=== PATIENT | female | born 1965 | race Caucasian/White ===

== ENCOUNTER 2016-10-26 11:26 | Emergency (ER) | payer BC ==
[~2016-10-26] VITALS: Ht 154.9 cm; Wt 60.0 kg
[2016-10-26 11:27] VITALS: BP 145/96
[2016-10-26] MEDS ORDERED: MORP15TASA PO (11:40)
[2016-10-26] MEDS ORDERED: OXYC-424 PO (11:40)
[2016-10-26] MEDS ORDERED: SYNT50TA PO (11:40)
[2016-10-26] MEDS ORDERED: IBUP-1022 PO (12:15)
[2016-10-26] MEDS ORDERED: OXYC1TAB16 PO (12:15)
[2016-10-26] MEDS ORDERED: KETOROLAC 60 MG/2 ML VIAL (J1885) IM ONE (12:15)
== END 2016-10-26 12:41 | disposition home or self-care (01) ==
LOC: M ED 11:26
DX: S39.012A Strain of muscle, fascia and tendon of lower back, initial encounter (principal); M54.41 Lumbago with sciatica, right side; X50.9XXA Other and unspecified overexertion or strenuous movements or postures, initial encounter; Y92.9 Unspecified place or not applicable; Y93.89 Activity, other specified; Y99.8 Other external cause status; F17.200 Nicotine dependence, unspecified, uncomplicated; Z79.891 Long term (current) use of opiate analgesic; Z79.899 Other long term (current) drug therapy; Z88.8 Allergy status to other drugs, medicaments and biological substances
CPT/HCPCS: 96372; 99282; J1885

== ENCOUNTER 2018-12-01 13:40 | Emergency (ER) | payer BC ==
[~2018-12-01] VITALS: Ht 152.4 cm; Wt 60.0 kg
[~2018-12-01 13:40] MED LIST: IBUP-1022 PO; MORP15TASA PO; OXYC-424 PO; OXYC10TA3 PO; SYNT50TA PO
[2018-12-01 13:41] VITALS: BP 152/85
[2018-12-01] MEDS ORDERED: OXYC15TA76 (13:53)
[2018-12-01] MEDS ORDERED: MORP-69 (13:53)
== END 2018-12-01 15:52 | disposition home or self-care (01) ==
LOC: M ED 13:40
DX: Z76.0 Encounter for issue of repeat prescription (principal); M53.3 Sacrococcygeal disorders, not elsewhere classified; M51.9 Unspecified thoracic, thoracolumbar and lumbosacral intervertebral disc disorder; F17.210 Nicotine dependence, cigarettes, uncomplicated; Z88.5 Allergy status to narcotic agent; Z79.891 Long term (current) use of opiate analgesic

== ENCOUNTER 2023-12-09 07:20 | Emergency (ER) | payer BC ==
[~2023-12-09] VITALS: Ht 152.4 cm; Wt 65.7 kg
[~2023-12-09 07:20] MED LIST changes: +MORP-69; +OXYC-1
[2023-12-09 07:22] VITALS: BP 113/74; TEMP 97.4; O2SAT 98
[2023-12-09] MEDS ORDERED: ACET650T61 PO (07:38)
[2023-12-09] MEDS ORDERED: NAPR220C14 PO (07:39)
[2023-12-09] MEDS ORDERED: CYCL5TAB (09:29)
[2023-12-09] MEDS ORDERED: NAPR-837 PO (09:42)
== END 2023-12-09 10:02 | disposition home or self-care (01) ==
LOC: M ED 07:20
DX: R07.89 Other chest pain (principal); F17.210 Nicotine dependence, cigarettes, uncomplicated; Z88.8 Allergy status to other drugs, medicaments and biological substances; Z79.1 Long term (current) use of non-steroidal anti-inflammatories (NSAID); Z79.899 Other long term (current) drug therapy

== ENCOUNTER 2024-11-24 13:18 | Inpatient (IN) | payer BC ==
[~2024-11-24] VITALS: Ht 152.4 cm; Wt 68.5 kg
[~2024-11-24 13:18] MED LIST changes: +ACET650T61 PO; +CYCL5TAB4; -IBUP-1022 PO; +IBUP600T42 PO; +MORP-138 PO; -MORP15TASA PO; +NAPR-837 PO; +NAPR220C14 PO
[2024-11-24 14:14] LABS: KETONE, URINE AUTO RFX TRACE mg/dL (NEGATIVE); LEUKOCYTE ESTERASE UR AUTO RFX NEGATIVE (NEGATIVE); MUCUS, URINE RFX LARGE (NEGATIVE); NITRITE, URINE AUTO RFX NEGATIVE (NEGATIVE); RBC, URINE AUTO RFX 0 /HPF (0-3); SQUAM EPITHELIAL CELL UR AURFX 1 /HPF (0-6); WBC, URINE AUTO RFX 6 /HPF (0-3)
[2024-11-24] MEDS: NS (Normal Saline) 0.9% 1,000 ML IV ONE (14:14)
[2024-11-24] MEDS: KETOROLAC 30 MG/ML 1 ML VIAL IV ONE (14:16)
[2024-11-24 14:27] LABS: BASO # 0.1 10^3/uL (0.0-0.2); BASO % 0.2 % (0.0-1.0); EOS # 0.0 10^3/uL (0.0-0.5); EOS % 0.1 % (0.0-3.0); LYMPH # 1.1 10^3/uL (1.5-5.0); LYMPH % 5.5 % (24.0-44.0); MONO # 1.0 10^3/uL (0.0-0.8); MONO % 4.9 % (2.0-8.0); NEUTROPHILS # 17.7 10^3/uL (1.5-8.5); NEUTROPHILS % 88.7 % (36.0-66.0); PLATELET COUNT, AUTOMATED 350 10^3/uL (150-450)
[2024-11-24 14:59] LABS: ALT/SGPT 16 U/L (7.0-40); AST/SGOT 18 U/L (<34); CALCIUM LEVEL 8.7 MG/DL (8.3-10.6); CARBON DIOXIDE LEVEL 25 MMOL/L (20-31); CHLORIDE LEVEL 103 MMOL/L (98-107); CREATININE FOR GFR 0.55 MG/DL (0.55-1.30); GLOMERULAR FILTRATION RATE > 90.0 (>45); POTASSIUM SERUM 3.4 MMOL/L (3.5-5.1); SODIUM LEVEL 140 MMOL/L (136-145)
[2024-11-24] MEDS: cefTRIAXone SOD 1 GM in DEXTROSE 5% (D5W) ADV/MINI-BAG 50 ML IV ONE (15:39)
[2024-11-24] MEDS: DOXYCYCLINE HYCLATE 100 MG TABLET PO ONE (15:39)
[2024-11-24] MEDS ORDERED: ISOVUE-370 76% 100 ML VIAL As Ordered ONE (15:40)
[2024-11-24] MEDS ORDERED: HOME MED LIST COMPLETE! XX SCH (16:45)
[2024-11-24 17:14] LABS: INR 1.49
[2024-11-24 17:24] LABS: CK-MB VALUE MASS < 1.0 NG/ML (<3.6)
[2024-11-24 17:26] LABS: CPK CREATINE PHOSPHOKINASE 44 U/L (34-145)
[2024-11-24] MEDS: DOCUSATE SODIUM 100 MG CAPSULE PO SCH (21:00)
[2024-11-24] MEDS ORDERED: MOM 30 ML SUSPENSION UDC PO PRN (21:50)
[2024-11-24] MEDS: AZITHROMYCIN 250 MG TABLET PO SCH (22:18)
[2024-11-24] MEDS: ACETAMINOPHEN 325 MG TAB PO PRN (22:21)
[2024-11-24 22:28] LABS: MAGNESIUM LEVEL 1.9 MG/DL (1.8-2.4)
[2024-11-24] MEDS ORDERED: APIXABAN 5 MG TAB PO SCH (22:50)
[2024-11-24] MEDS ORDERED: IBUPROFEN 600 MG TAB PO PRN (22:55)
[2024-11-24 23:19] VITALS: BP 126/58; TEMP 98.4; O2SAT 92
[2024-11-24] MEDS: LIDOCAINE 5% PATCH TD SCH (23:26)
[2024-11-24] MEDS: APIXABAN 5 MG TAB PO SCH (23:26)
[2024-11-24] MEDS: PIPERACILLIN/TAZOBACTAM SOD 4.5 GM in DEXTROSE 5% (D5W) ADV/MINI-BAG 50 ML IV SCH (23:26)
[2024-11-24] MEDS: ONDANSETRON 4MG ORAL DISINTEGRATING TAB PO PRN (23:58)
[2024-11-24] MEDS: NICOTINE 14 MG/24 HR TRANSDERMAL TD PRN (23:58)
[2024-11-25] VITALS (30 sets, daily range): BP systolic 111–145; BP diastolic 53–74; TEMP 97–98.1; O2SAT 88–99
[2024-11-25] MEDS: POTASSIUM CHLORIDE 10MEQ SR TABLET PO ONE ×2 (00:49→08:57)
[2024-11-25] MEDS: IPRATROPIUM 0.5 MG/ALBUTEROL 2.5 MG INH SOL UD 3 ML INH SCH (01:43)
[2024-11-25] MEDS ORDERED: LEVALBUTEROL 1.25 MG 0.5ML CONCENTRATE NEB INH SCH (02:00)
[2024-11-25] MEDS: KETOROLAC 30 MG/ML 1 ML VIAL IV ONE (04:33)
[2024-11-25 06:16] LABS: PLATELET COUNT, AUTOMATED 283 10^3/uL (150-450)
[2024-11-25 06:28] LABS: ALT/SGPT 13 U/L (7.0-40); AST/SGOT 12 U/L (<34); CALCIUM LEVEL 8.1 MG/DL (8.3-10.6); CARBON DIOXIDE LEVEL 26 MMOL/L (20-31); CHLORIDE LEVEL 107 MMOL/L (98-107); CREATININE FOR GFR 0.60 MG/DL (0.55-1.30); GLOMERULAR FILTRATION RATE > 90.0 (>45); MAGNESIUM LEVEL 2.0 MG/DL (1.8-2.4); POTASSIUM SERUM 3.3 MMOL/L (3.5-5.1); SODIUM LEVEL 143 MMOL/L (136-145)
[2024-11-25] MEDS: LEVALBUTEROL 1.25 MG 0.5ML CONCENTRATE NEB INH PRN (07:53)
[2024-11-25] MEDS: DOXYCYCLINE HYCLATE 100 MG TABLET PO SCH (08:57)
[2024-11-25] MEDS: FLUZONE VACCINE TRIVALENT PF(25-26) 0.5ML SYRINGE IM.IMMUN ONE (12:00)
[2024-11-25] MEDS: PNEUMOC 21-VAL CONJ-DIP CRM/PF 0.5 ML SYRINGE IM.IMMUN ONE (12:00)
[2024-11-25] MEDS: ACETAMINOPHEN 325 MG TAB PO SCH (13:33)
[2024-11-25] MEDS: cefTRIAXone SOD 1 GM in DEXTROSE 5% (D5W) ADV/MINI-BAG 50 ML IV SCH (15:45)
[2024-11-26] VITALS (15 sets, daily range): BP systolic 115–136; BP diastolic 57–71; TEMP 97–98.4; O2SAT 86–96
[2024-11-26 05:44] LABS: PLATELET COUNT, AUTOMATED 298 10^3/uL (150-450)
[2024-11-26 06:07] LABS: ALT/SGPT 12 U/L (7.0-40); AST/SGOT 12 U/L (<34); CALCIUM LEVEL 8.4 MG/DL (8.3-10.6); CARBON DIOXIDE LEVEL 27 MMOL/L (20-31); CHLORIDE LEVEL 107 MMOL/L (98-107); CREATININE FOR GFR 0.57 MG/DL (0.55-1.30); GLOMERULAR FILTRATION RATE > 90.0 (>45); POTASSIUM SERUM 3.4 MMOL/L (3.5-5.1); SODIUM LEVEL 144 MMOL/L (136-145)
[2024-11-26] MEDS: POTASSIUM CHLORIDE 10MEQ SR TABLET PO SCH (09:05)
[2024-11-26] MEDS: MAALOX 30 ML SUSP *UDC PO PRN (17:30)
[2024-11-27] VITALS (21 sets, daily range): BP systolic 115–147; BP diastolic 63–87; TEMP 97.1–98.4; O2SAT 88–99
[2024-11-27 06:10] LABS: PLATELET COUNT, AUTOMATED 425 10^3/uL (150-450)
[2024-11-27 06:34] LABS: ALT/SGPT 14 U/L (7.0-40); AST/SGOT 14 U/L (<34); CALCIUM LEVEL 8.4 MG/DL (8.3-10.6); CARBON DIOXIDE LEVEL 28 MMOL/L (20-31); CHLORIDE LEVEL 106 MMOL/L (98-107); CREATININE FOR GFR 0.58 MG/DL (0.55-1.30); GLOMERULAR FILTRATION RATE > 90.0 (>45); POTASSIUM SERUM 3.8 MMOL/L (3.5-5.1); SODIUM LEVEL 142 MMOL/L (136-145)
[2024-11-27 09:21] LABS: DRVV SCREEN 137.8 SECONDS
[2024-11-27 09:58] LABS: PTT LUPUS TYPE ANTICOAG SCREEN 3.48 (0-1.20)
[2024-11-27 10:06] LABS: DRVV CONFIRM 148.4 SECONDS; LUPUS CONFIRM RATIO 3.88
[2024-11-27 10:07] LABS: NORMALIZED RATIO 0.89 (0.00-1.20)
[2024-11-27] MEDS ORDERED: DOXY100T PO (11:47)
[2024-11-27] MEDS ORDERED: CEFP200T PO (11:47)
[2024-11-27] MEDS ORDERED: OXYC-517 PO (11:47)
[2024-11-27] MEDS ORDERED: FLUC-1 PO (11:47)
[2024-11-27] MEDS ORDERED: ELIQ5TAB PO (11:47)
[2024-11-27] MEDS ORDERED: COMBAER6 INH (12:27)
[2024-11-27] MEDS: COMBIVENT RESPIMAT 100-20 MCG INHALER 4 GM INH SCH (13:37)
[2024-11-27] MEDS: CEFPODOXIME PROXETIL 200 MG TABLET PO SCH (13:45)
[2024-11-27] MEDS: ULTRACET TAB PO SCH (17:07)
[2024-11-28] VITALS (8 sets, daily range): BP systolic 121–138; BP diastolic 58–74; TEMP 97.9–98.6; O2SAT 85–94
[2024-11-28] MEDS ORDERED: IPRAINH INH (15:08)
[2024-11-28] MEDS ORDERED: VENTAER INH (15:08)
[2024-11-30 15:42] LABS: HOMOCYST(E)INE SERUM 8.7 umol/L (< or = 13.4)
[2024-11-30 17:07] LABS: PROTEIN S ANTIGEN FREE 128 % normal (50-147); PROTEIN S ANTIGEN TOTAL 117 % normal (70-140)
[2024-11-30 18:07] LABS: SSA SJOGRENS A <1.0 NEG AI (<1.0 NEG); SSB SJOGRENS B <1.0 NEG AI (<1.0 NEG)
[2024-12-01 00:42] LABS: CARDIOLIPIN IGA ANTIBODY < 2.0 APL-U/mL (<20.0); CARDIOLIPIN IGG ANTIBODY < 2.0 GPL-U/mL (<20.0); CARDIOLIPIN IGM ANTIBODY 4.6 MPL-U/mL (<20.0)
== END 2024-11-28 13:49 | disposition home or self-care (01) | DRG 720 ==
LOC: M ED 13:18 → M ED INP 21:47 → M PCU 23:05
PROVIDERS: ADMIT Student in an Organized Health Care Education/Training Program; ATTEND Internal Medicine Nephrology
PROC: B246ZZZ Ultrasonography of Right and Left Heart (ICD-10-PCS; principal; 2024-11-25)
DX: A41.9 Sepsis, unspecified organism (principal); I26.99 Other pulmonary embolism without acute cor pulmonale; J18.9 Pneumonia, unspecified organism; E89.0 Postprocedural hypothyroidism; G43.909 Migraine, unspecified, not intractable, without status migrainosus; F17.200 Nicotine dependence, unspecified, uncomplicated; M54.9 Dorsalgia, unspecified; E87.6 Hypokalemia; R09.02 Hypoxemia; Z90.49 Acquired absence of other specified parts of digestive tract; Z88.8 Allergy status to other drugs, medicaments and biological substances

== ENCOUNTER → 2024-12-04 | Outpatient (CLI) | payer BC ==
[~2024-12-04] MED LIST changes: +CEFP200T PO; +COMBAER6 INH; +DOXY100T PO; +ELIQ5TAB PO; +FLUC-1 PO; +IPRAINH INH; +OXYC-517 PO; +VENTAER INH
== END ==
LOC: M RAD 11:17 → M LAB 11:17
PROVIDERS: ATTEND Nurse Practitioner Family
DX: J18.9 Pneumonia, unspecified organism (principal)

== ENCOUNTER → 2025-01-04 | Outpatient (CLI) | payer BC | LOC: M WUC 14:38 | PROVIDERS: ATTEND Student in an Organized Health Care Education/Training Program | DX: J44.1 Chronic obstructive pulmonary disease with (acute) exacerbation (principal) ==

== ENCOUNTER → 2025-01-11 | Outpatient (REF) | payer BC ==
[~2025-01-11] MED LIST changes: +LOVE0.4I2 SC; +MED REC COMMENT; +WARF-23 PO
[2025-01-11 18:24] LABS: CALCIUM LEVEL 8.8 MG/DL (8.3-10.6); CARBON DIOXIDE LEVEL 27 MMOL/L (20-31); CHLORIDE LEVEL 107 MMOL/L (98-107); CREATININE FOR GFR 0.60 MG/DL (0.55-1.30); GLOMERULAR FILTRATION RATE > 90.0 (>45); POTASSIUM SERUM 3.7 MMOL/L (3.5-5.1); SODIUM LEVEL 142 MMOL/L (136-145)
== END ==
LOC: M LAB REF 17:30
PROVIDERS: ATTEND Student in an Organized Health Care Education/Training Program
DX: R07.89 Other chest pain (principal)

== ENCOUNTER 2025-01-12 20:57 | Inpatient (IN) | payer BC ==
[~2025-01-12] VITALS: Ht 152.4 cm; Wt 65.3 kg
[~2025-01-12 20:57] MED LIST changes: -ISOVUE-370 76% 100 ML VIAL ONE; -KETO-204 PO; -LOVE0.4I2 SC; -MED REC COMMENT; -WARF-23 PO
[2025-01-12 21:24] LABS: BASO # 0.0 10^3/uL (0.0-0.2); BASO % 0.2 % (0.0-1.0); EOS # 0.1 10^3/uL (0.0-0.5); EOS % 1.0 % (0.0-3.0); LYMPH # 2.2 10^3/uL (1.5-5.0); LYMPH % 15.7 % (24.0-44.0); MONO # 0.8 10^3/uL (0.0-0.8); MONO % 5.9 % (2.0-8.0); NEUTROPHILS # 10.8 10^3/uL (1.5-8.5); NEUTROPHILS % 76.8 % (36.0-66.0); PLATELET COUNT, AUTOMATED 482 10^3/uL (150-450)
[2025-01-12 21:44] LABS: INR 1.09
[2025-01-12 21:52] LABS: ALT/SGPT 14 U/L (7.0-40); AST/SGOT 32 U/L (<34); CALCIUM LEVEL 8.4 MG/DL (8.3-10.6); CARBON DIOXIDE LEVEL 25 MMOL/L (20-31); CHLORIDE LEVEL 103 MMOL/L (98-107); CK-MB VALUE MASS < 1.0 NG/ML (<3.6); CREATININE FOR GFR 0.56 MG/DL (0.55-1.30); GLOMERULAR FILTRATION RATE > 90.0 (>45); POTASSIUM SERUM 4.0 MMOL/L (3.5-5.1); SODIUM LEVEL 137 MMOL/L (136-145)
[2025-01-12 22:05] LABS: CPK CREATINE PHOSPHOKINASE 57 U/L (34-145)
[2025-01-12] MEDS: ONDANSETRON 4MG/2ML VIAL IV ONE (22:15)
[2025-01-12] MEDS: MORPHINE 4 MG/ML 1 ML VIAL IV PRN (22:16)
[2025-01-12 22:51] LABS: INR 1.11
[2025-01-12] MEDS: PIPERACILLIN/TAZOBACTAM SOD 4.5 GM in DEXTROSE 5% (D5W) ADV/MINI-BAG 50 ML IV ONE (23:17)
[2025-01-12] MEDS ORDERED: VENTAER INH (23:44)
[2025-01-12] MEDS ORDERED: WARF-23 PO (23:44)
[2025-01-12] MEDS ORDERED: LOVE0.4I2 SC (23:44)
[2025-01-12] MEDS ORDERED: MED REC COMMENT (23:47)
[2025-01-12] MEDS ORDERED: HOME MED LIST COMPLETE! XX SCH (23:50)
[2025-01-13] MEDS ORDERED: ALBUTEROL 90 MCG/ACT 8 GM HFA INHALER INH PRN (00:05)
[2025-01-13] MEDS: ENOXAPARIN 60 MG/0.6 ML SYRINGE (J1650 PER 10MG) SC SCH (00:57)
[2025-01-13] MEDS: PIPERACILLIN/TAZOBACTAM SOD 4.5 GM in DEXTROSE 5% (D5W) ADV/MINI-BAG 50 ML IV SCH (05:07)
[2025-01-13] MEDS: ACETAMINOPHEN 650 MG ER TAB PO PRN (06:13)
[2025-01-13 07:27] LABS: INR 1.2
[2025-01-13 13:55] VITALS: BP 144/85; TEMP 97.3; O2SAT 97
[2025-01-13 16:00] VITALS: BP 101/57; TEMP 97.9; O2SAT 90
[2025-01-13] MEDS: ALBUTEROL 90 MCG/ACT 8 GM HFA INHALER INH SCH (16:24)
[2025-01-13] MEDS: IPRATROPIUM HFA INHALER 12.9 GRAMS INH SCH (16:25)
[2025-01-13] MEDS: traMADol 50 MG TAB PO SCH (16:35)
[2025-01-13] MEDS: WARFARIN SOD 5MG TAB PO SCH (16:35)
[2025-01-13] MEDS: ACETAMINOPHEN 500 MG TAB PO SCH (16:35)
[2025-01-13] MEDS: KETOROLAC 30 MG/ML 1 ML VIAL IV ONE (17:44)
[2025-01-13 21:35] VITALS: BP 102/58; TEMP 97; O2SAT 92
[2025-01-14 00:11] VITALS: BP 102/56; TEMP 96.8; O2SAT 90
[2025-01-14 04:15] VITALS: BP 133/74; TEMP 97.3; O2SAT 92
[2025-01-14 06:37] LABS: BASO # 0.0 10^3/uL (0.0-0.2); BASO % 0.4 % (0.0-1.0); EOS # 0.1 10^3/uL (0.0-0.5); EOS % 1.6 % (0.0-3.0); LYMPH # 1.5 10^3/uL (1.5-5.0); LYMPH % 18.5 % (24.0-44.0); MONO # 0.6 10^3/uL (0.0-0.8); MONO % 7.6 % (2.0-8.0); NEUTROPHILS # 5.7 10^3/uL (1.5-8.5); NEUTROPHILS % 71.4 % (36.0-66.0); PLATELET COUNT, AUTOMATED 468 10^3/uL (150-450)
[2025-01-14 07:08] LABS: CALCIUM LEVEL 8.5 MG/DL (8.3-10.6); CARBON DIOXIDE LEVEL 27 MMOL/L (20-31); CHLORIDE LEVEL 104 MMOL/L (98-107); CREATININE FOR GFR 0.63 MG/DL (0.55-1.30); GLOMERULAR FILTRATION RATE > 90.0 (>45); POTASSIUM SERUM 3.6 MMOL/L (3.5-5.1); SODIUM LEVEL 140 MMOL/L (136-145)
[2025-01-14 08:45] VITALS: BP 125/78; TEMP 97.3; O2SAT 93
[2025-01-14] MEDS ORDERED: KETO-204 PO (13:50)
== END 2025-01-14 14:25 | disposition home or self-care (01) | DRG 139 ==
LOC: M ED 20:57 → M ED INP 01-13 00:02 → M MSPAV 01-13 14:04
PROVIDERS: ADMIT Student in an Organized Health Care Education/Training Program; ATTEND Internal Medicine Nephrology
DX: J18.9 Pneumonia, unspecified organism (principal); I26.99 Other pulmonary embolism without acute cor pulmonale; D68.59 Other primary thrombophilia; E03.9 Hypothyroidism, unspecified; F17.210 Nicotine dependence, cigarettes, uncomplicated; G43.909 Migraine, unspecified, not intractable, without status migrainosus; Z79.01 Long term (current) use of anticoagulants; Z79.899 Other long term (current) drug therapy; Z88.8 Allergy status to other drugs, medicaments and biological substances

== ENCOUNTER → 2025-01-12 | Outpatient (CLI) | payer BC ==
[~2025-01-12] MED LIST changes: +ISOVUE-370 76% 100 ML VIAL ONE; +KETO-204 PO
== END ==
LOC: M PLAIMG 07:57
PROVIDERS: ATTEND Student in an Organized Health Care Education/Training Program
DX: R07.89 Other chest pain (principal); I26.99 Other pulmonary embolism without acute cor pulmonale; R91.8 Other nonspecific abnormal finding of lung field; K44.9 Diaphragmatic hernia without obstruction or gangrene
CPT/HCPCS: 71275; Q9967

== ENCOUNTER → 2025-01-15 | Outpatient (CLI) | payer BC ==
[~2025-01-15] MED LIST changes: +FAMO20TA PO; +KETO-204 PO; +LOVE0.4I2 SC; +MED REC COMMENT; +WARF-23 PO
[2025-01-15 12:20] LABS: INR 1.17
== END ==
LOC: M WUC 09:21
PROVIDERS: ATTEND Physical Therapist
DX: I26.94 Multiple subsegmental thrombotic pulmonary emboli without acute cor pulmonale (principal)

== ENCOUNTER 2025-01-17 18:57 | Inpatient (IN) | payer BC ==
[~2025-01-17] VITALS: Ht 152.4 cm; Wt 64.7 kg
[~2025-01-17 18:57] MED LIST changes: -FAMO20TA PO
[2025-01-17 19:43] LABS: BASO # 0.1 10^3/uL (0.0-0.2); BASO % 0.4 % (0.0-1.0); EOS # 0.1 10^3/uL (0.0-0.5); EOS % 0.6 % (0.0-3.0); LYMPH # 2.0 10^3/uL (1.5-5.0); LYMPH % 15.5 % (24.0-44.0); MONO # 0.6 10^3/uL (0.0-0.8); MONO % 4.8 % (2.0-8.0); NEUTROPHILS # 10.0 10^3/uL (1.5-8.5); NEUTROPHILS % 78.2 % (36.0-66.0); PLATELET COUNT, AUTOMATED 542 10^3/uL (150-450)
[2025-01-17] MEDS ORDERED: ISOVUE-370 76% 100 ML VIAL As Ordered ONE (19:46)
[2025-01-17] MEDS: MORPHINE 4 MG/ML 1 ML VIAL IV PRN (19:51)
[2025-01-17] MEDS: ONDANSETRON 4MG/2ML VIAL IV ONE (19:51)
[2025-01-17 20:05] LABS: INR 1.52
[2025-01-17 20:07] LABS: CK-MB VALUE MASS < 1.0 NG/ML (<3.6)
[2025-01-17 20:08] LABS: ALT/SGPT 80 U/L (7.0-40); AST/SGOT 37 U/L (<34); CALCIUM LEVEL 8.6 MG/DL (8.3-10.6); CARBON DIOXIDE LEVEL 24 MMOL/L (20-31); CHLORIDE LEVEL 106 MMOL/L (98-107); CREATININE FOR GFR 1.11 MG/DL (0.55-1.30); GLOMERULAR FILTRATION RATE 56.9 (>45); POTASSIUM SERUM 3.7 MMOL/L (3.5-5.1); SODIUM LEVEL 141 MMOL/L (136-145)
[2025-01-17 20:11] LABS: CPK CREATINE PHOSPHOKINASE 49 U/L (34-145)
[2025-01-17 20:13] LABS: VENOUS BASE EXCESS -0.5 (-2.0-2.0); VENOUS HCO3 24.1 MMOL/L (23.0-27.0); VENOUS O2 SATURATION 92.3 % (60.0-80.0); VENOUS PARTIAL PRESSURE CO2 39.5 mmHg (38.0-50.0); VENOUS PARTIAL PRESSURE O2 67.5 mmHg (30.0-50.0); VENOUS PH 7.404 UNITS (7.330-7.430); VENOUS STANDARD HCO3 24.0 MMOL/L; VENOUS TOTAL CO2 25.4 MMOL/L (24.0-28.0)
[2025-01-18] VITALS (21 sets, daily range): BP systolic 120–159; BP diastolic 65–86; TEMP 97.5–98.6; O2SAT 85–100
[2025-01-18] MEDS: MORPHINE 4 MG/ML 1 ML VIAL IV PRN ×2 (00:26→19:40)
[2025-01-18] MEDS ORDERED: MAALOX 30 ML SUSP *UDC PO PRN (01:15)
[2025-01-18] MEDS ORDERED: MOM 30 ML SUSPENSION UDC PO PRN (01:15)
[2025-01-18] MEDS: ENOXAPARIN 60 MG/0.6 ML SYRINGE (J1650 PER 10MG) SC ONE (01:37)
[2025-01-18] MEDS: PIPERACILLIN/TAZOBACTAM SOD 4.5 GM in DEXTROSE 5% (D5W) ADV/MINI-BAG 50 ML IV SCH (01:57)
[2025-01-18] MEDS ORDERED: FAMO20TA PO (02:04)
[2025-01-18] MEDS ORDERED: HOME MED LIST COMPLETE! XX SCH (02:10)
[2025-01-18] MEDS: IPRATROPIUM 0.5 MG/ALBUTEROL 2.5 MG INH SOL UD 3 ML INH SCH (02:11)
[2025-01-18] MEDS: ACETAMINOPHEN *IV* 1,000 MG in IV 1 EA IV PRN (02:54)
[2025-01-18] MEDS ORDERED: ALBUTEROL 90 MCG/ACT 8 GM HFA INHALER INH PRN (05:30)
[2025-01-18] MEDS ORDERED: FAMOTIDINE 20 MG TAB PO PRN (05:30)
[2025-01-18] MEDS: KETOROLAC TROMETHAMINE 10 MG TAB PO PRN (06:11)
[2025-01-18 06:33] LABS: PLATELET COUNT, AUTOMATED 524 10^3/uL (150-450)
[2025-01-18 07:06] LABS: CALCIUM LEVEL 8.4 MG/DL (8.3-10.6); CARBON DIOXIDE LEVEL 26 MMOL/L (20-31); CHLORIDE LEVEL 102 MMOL/L (98-107); CREATININE FOR GFR 0.63 MG/DL (0.55-1.30); GLOMERULAR FILTRATION RATE > 90.0 (>45); POTASSIUM SERUM 3.7 MMOL/L (3.5-5.1); SODIUM LEVEL 138 MMOL/L (136-145)
[2025-01-18] MEDS: LR 1,000 ML IV SCH (07:06)
[2025-01-18] MEDS: DOCUSATE SODIUM 100 MG CAPSULE PO SCH (09:13)
[2025-01-18] MEDS: ACETAMINOPHEN 325 MG TAB PO PRN (09:16)
[2025-01-18 12:10] LABS: INR 1.9
[2025-01-18] MEDS ORDERED: PILL CUTTER 1 EACH XX PRN (15:05)
[2025-01-18] MEDS: FLUZONE VACCINE TRI PF(25-26) 0.5ML SYRINGE IM.IMMUN ONE (15:06)
[2025-01-18] MEDS: PNEUMOC 21-VAL CONJ-DIP CRM/PF 0.5 ML SYRINGE IM.IMMUN ONE (15:08)
[2025-01-18] MEDS: WARFARIN SOD 5MG TAB PO SCH (16:43)
[2025-01-18] MEDS: KETOROLAC 30 MG/ML 1 ML VIAL IV PRN (21:13)
[2025-01-19 00:45] LABS: FREE T4 1.12 NG/DL (0.89-1.76)
[2025-01-19 04:00] VITALS: BP 139/63; TEMP 98.6; O2SAT 90
[2025-01-19 06:24] LABS: PLATELET COUNT, AUTOMATED 425 10^3/uL (150-450)
[2025-01-19 06:45] LABS: INR 2.19
[2025-01-19 06:49] LABS: CALCIUM LEVEL 8.1 MG/DL (8.3-10.6); CARBON DIOXIDE LEVEL 26 MMOL/L (20-31); CHLORIDE LEVEL 103 MMOL/L (98-107); CREATININE FOR GFR 0.56 MG/DL (0.55-1.30); GLOMERULAR FILTRATION RATE > 90.0 (>45); POTASSIUM SERUM 3.8 MMOL/L (3.5-5.1); SODIUM LEVEL 138 MMOL/L (136-145)
[2025-01-19 07:00] VITALS: O2SAT 88
[2025-01-19 08:00] VITALS: O2SAT 89
[2025-01-19 09:00] VITALS: O2SAT 86
[2025-01-19 10:00] VITALS: O2SAT 92
[2025-01-19] MEDS ORDERED: AMOX875T2 PO (10:09)
[2025-01-19] MEDS ORDERED: OXYC10TA12 PO (10:09)
== END 2025-01-19 12:00 | disposition home or self-care (01) | DRG 134 ==
LOC: M ED 18:57 → M ED INP 18:58 → M MS4PR 01-18 03:30 → M ED INP 01-18 03:30 → M MS4PR 01-18 05:30 → OBSVTOIN 01-18 16:20
PROVIDERS: ADMIT Student in an Organized Health Care Education/Training Program; ATTEND Internal Medicine
DX: I27.82 Chronic pulmonary embolism (principal); J18.9 Pneumonia, unspecified organism; N17.9 Acute kidney failure, unspecified; E03.9 Hypothyroidism, unspecified; R07.81 Pleurodynia; G43.909 Migraine, unspecified, not intractable, without status migrainosus; Z87.442 Personal history of urinary calculi; Z90.49 Acquired absence of other specified parts of digestive tract; Z79.01 Long term (current) use of anticoagulants; Z79.899 Other long term (current) drug therapy; Z88.8 Allergy status to other drugs, medicaments and biological substances

== ENCOUNTER → 2025-01-20 | Outpatient (CLI) | payer BC ==
[~2025-01-20] MED LIST changes: +AMOX875T2 PO; +FAMO20TA PO; +OXYC10TA12 PO
== END ==
LOC: M RAD 12:18
PROVIDERS: ATTEND Nurse Practitioner Family
DX: M79.89 Other specified soft tissue disorders (principal)

== ENCOUNTER 2025-02-03 05:28 | Inpatient (IN) | payer BC ==
[~2025-02-03] VITALS: Ht 152.4 cm; Wt 63.2 kg
[2025-02-03] VITALS (19 sets, daily range): BP systolic 90–118; BP diastolic 61–81; TEMP 97.4–98.5; O2SAT 90–99
[~2025-02-03 05:28] MED LIST changes: +ATRO0.063 INH; +ENOX60IN3 SC
[2025-02-03] MEDS ORDERED: ISOVUE-370 76% 100 ML VIAL As Ordered ONE (05:51)
[2025-02-03 06:00] LABS: VENOUS BASE EXCESS -7.2 (-2.0-2.0); VENOUS HCO3 18.0 MMOL/L (23.0-27.0); VENOUS O2 SATURATION 64.6 % (60.0-80.0); VENOUS PARTIAL PRESSURE CO2 35.3 mmHg (38.0-50.0); VENOUS PARTIAL PRESSURE O2 38.3 mmHg (30.0-50.0); VENOUS PH 7.326 UNITS (7.330-7.430); VENOUS STANDARD HCO3 18.0 MMOL/L; VENOUS TOTAL CO2 19.1 MMOL/L (24.0-28.0)
[2025-02-03 06:06] LABS: BASO # 0.1 10^3/uL (0.0-0.2); BASO % 0.4 % (0.0-1.0); EOS # 0.1 10^3/uL (0.0-0.5); EOS % 0.2 % (0.0-3.0); LYMPH # 3.3 10^3/uL (1.5-5.0); LYMPH % 15.4 % (24.0-44.0); MONO # 1.1 10^3/uL (0.0-0.8); MONO % 5.2 % (2.0-8.0); NEUTROPHILS # 16.8 10^3/uL (1.5-8.5); NEUTROPHILS % 77.8 % (36.0-66.0); PLATELET COUNT, AUTOMATED 414 10^3/uL (150-450)
[2025-02-03 06:27] LABS: CK-MB VALUE MASS 2.0 NG/ML (<3.6)
[2025-02-03 06:29] LABS: ALT/SGPT 15 U/L (7.0-40); AST/SGOT 26 U/L (<34); CALCIUM LEVEL 7.9 MG/DL (8.3-10.6); CARBON DIOXIDE LEVEL 17 MMOL/L (20-31); CHLORIDE LEVEL 106 MMOL/L (98-107); CREATININE FOR GFR 0.64 MG/DL (0.55-1.30); GLOMERULAR FILTRATION RATE > 90.0 (>45); MAGNESIUM LEVEL 1.9 MG/DL (1.8-2.4); POTASSIUM SERUM 3.7 MMOL/L (3.5-5.1); SODIUM LEVEL 140 MMOL/L (136-145)
[2025-02-03 06:31] LABS: THYROXINE (T4) 10.5 UG/DL (4.5-10.9)
[2025-02-03 06:34] LABS: CPK CREATINE PHOSPHOKINASE 42 U/L (34-145); MB/CK RELATIVE INDEX 4.76 (< OR =4)
[2025-02-03 06:46] LABS: D-DIMER QUANT > 20.00 ug/mL (<0.5); INR 1.42
[2025-02-03] MEDS: NS 500 ML IV ONE (07:21)
[2025-02-03] MEDS: CEFEPIME HCL 1 GM in DEXTROSE 5% (D5W) ADV/MINI-BAG 50 ML IV ONE (07:21)
[2025-02-03 07:30] LABS: CK-MB VALUE MASS 7.7 NG/ML (<3.6)
[2025-02-03 07:32] LABS: CPK CREATINE PHOSPHOKINASE 60.0 U/L (34-145); MB/CK RELATIVE INDEX 12.83 (< OR =4)
[2025-02-03] MEDS ORDERED: ENOX60IN3 SC (09:24)
[2025-02-03] MEDS ORDERED: OXYC10TA12 PO (09:24)
[2025-02-03] MEDS ORDERED: HOME MED LIST COMPLETE! XX SCH (09:25)
[2025-02-03] MEDS ORDERED: MIDAZOLAM INJ 2 MG/2 ML VIAL IV PRN (12:10)
[2025-02-03] MEDS: LIDOCAINE 1% MDV 20 ML VIAL SC SCH (12:52)
[2025-02-03] MEDS: ISOVUE-300 61% 100 ML VIAL IV SCH (12:52)
[2025-02-03] MEDS: NS (Normal Saline) 0.9% 1,000 ML IV SCH (12:52)
[2025-02-03] MEDS ORDERED: NS (Normal Saline) 0.9% 1,000 ML IV SCH (12:55)
[2025-02-03] MEDS: IPRATROPIUM 0.5 MG/ALBUTEROL 2.5 MG INH SOL UD 3 ML NEB SCH (14:16)
[2025-02-03] MEDS: ACETAMINOPHEN *IV* 1,000 MG in IV 1 EA IV SCH (14:44)
[2025-02-03] MEDS ORDERED: HEPARIN SOD 5000 UNITS/ML 1 ML VIAL/SYRINGE IV PRN (15:45)
[2025-02-03] MEDS: HEPARIN SOD 5000 UNITS/ML 1 ML VIAL/SYRINGE IV ONE (17:56)
[2025-02-03] MEDS: HEPARIN DRIP 25,000 UNITS in IV 1 EA IV SCH (18:04)
[2025-02-03] MEDS: KETOROLAC 30 MG/ML 1 ML VIAL IV ONE (20:14)
[2025-02-03] MEDS: SENNA 8.6 MG TAB PO SCH (20:15)
[2025-02-03] MEDS: DOCUSATE SODIUM 100 MG CAPSULE PO SCH (20:15)
[2025-02-04] VITALS (30 sets, daily range): BP systolic 79–116; BP diastolic 50–74; TEMP 97–98.7; O2SAT 89–100
[2025-02-04 05:05] LABS: BASO # 0.1 10^3/uL (0.0-0.2); BASO % 0.2 % (0.0-1.0); EOS # 0.0 10^3/uL (0.0-0.5); EOS % 0.0 % (0.0-3.0); LYMPH # 1.7 10^3/uL (1.5-5.0); LYMPH % 5.3 % (24.0-44.0); MONO # 1.7 10^3/uL (0.0-0.8); MONO % 5.1 % (2.0-8.0); NEUTROPHILS # 29.0 10^3/uL (1.5-8.5); NEUTROPHILS % 88.3 % (36.0-66.0)
[2025-02-04 05:06] LABS: PLATELET COUNT, AUTOMATED 294 10^3/uL (150-450)
[2025-02-04 05:37] LABS: ALT/SGPT 14 U/L (7.0-40); AST/SGOT 31 U/L (<34); CALCIUM LEVEL 8.2 MG/DL (8.3-10.6); CARBON DIOXIDE LEVEL 21 MMOL/L (20-31); CHLORIDE LEVEL 108 MMOL/L (98-107); CREATININE FOR GFR 0.65 MG/DL (0.55-1.30); GLOMERULAR FILTRATION RATE > 90.0 (>45); POTASSIUM SERUM 3.4 MMOL/L (3.5-5.1); SODIUM LEVEL 143 MMOL/L (136-145)
[2025-02-04] MEDS: PANTOPRAZOLE 40MG VIAL IV SCH (08:09)
[2025-02-04] MEDS: KETOROLAC 30 MG/ML 1 ML VIAL IV SCH (08:10)
[2025-02-04 08:19] LABS: C REACTIVE PROTEIN QUANTITATIV 9.58 MG/DL (<1.0)
[2025-02-04] MEDS ORDERED: AZITHROMYCIN 250 MG TABLET PO SCH (09:00)
[2025-02-04] MEDS: PIPERACILLIN/TAZOBACTAM SOD 4.5 GM in DEXTROSE 5% (D5W) ADV/MINI-BAG 50 ML IV SCH (09:42)
[2025-02-04] MEDS ORDERED: POTASSIUM CHLORIDE 10% LIQ 20MEQ/15ML UDC PO ONE (10:00)
[2025-02-04] MEDS: KCL 10MEQ/100ML SWI (KRUN) 10 MEQ in IV 1 EA IV SCH (11:00)
[2025-02-04] MEDS: AZITHROMYCIN INJ 500 MG, VIAL MATE ADAPTER 1 EACH in NS 250 ML IV ONE (11:00)
[2025-02-04] MEDS: ISOVUE-300 61% 100 ML VIAL IV SCH (11:05)
[2025-02-04] MEDS ORDERED: HEPARIN 1,000 UNITS/ML 10 ML VIAL (FOR RADIOLOGY & DIALYSIS ONLY) IV PRN (11:05)
[2025-02-04] MEDS: NS (Normal Saline) 0.9% 1,000 ML IV SCH (11:05)
[2025-02-04] MEDS: LIDOCAINE 1% MDV 20 ML VIAL SC SCH (12:43)
[2025-02-04] MEDS: MIDAZOLAM INJ 2 MG/2 ML VIAL IV PRN (12:44)
[2025-02-04] MEDS: MAG SULF 1GM/100ML (MAG RUN) 1 GM in IV 1 EA IV SCH (13:32)
[2025-02-04] MEDS: VANCOMYCIN HCL 1,250 MG, VIAL MATE ADAPTER 1 EACH in NS 250 ML IV ONE (13:42)
[2025-02-04] MEDS ORDERED: MAGNESIUM SULFATE 1 GM/100 ML D5W BAG (10MG/ML) As Ordered ONE (14:36)
[2025-02-04] MEDS: AZITHROMYCIN 250 MG TABLET PO SCH (15:28)
[2025-02-04] MEDS: POTASSIUM CHLORIDE 10% LIQ 20MEQ/15ML UDC PO ONE (15:38)
[2025-02-04] MEDS ORDERED: IPRATROPIUM 0.5 MG/ALBUTEROL 2.5 MG INH SOL UD 3 ML NEB PRN (17:40)
[2025-02-04] MEDS: LEVALBUTEROL 1.25 MG 0.5ML CONCENTRATE NEB NEB ONE (18:03)
[2025-02-04] MEDS: GLYCOPYRROLATE INJ 0.2 MG/ML 2 ML VIAL NEB SCH (19:53)
[2025-02-04] MEDS: LEVALBUTEROL 1.25 MG 0.5ML CONCENTRATE NEB INH SCH (19:53)
[2025-02-04] MEDS ORDERED: VANCOMYCIN HCL 1,250 MG, VIAL MATE ADAPTER 1 EACH in NS 250 ML IV SCH (20:00)
[2025-02-04] MEDS: VANCOMYCIN HCL 1,250 MG, VIAL MATE ADAPTER 1 EACH in NS 250 ML IV SCH (21:23)
[2025-02-05] VITALS (10 sets, daily range): BP systolic 89–100; BP diastolic 51–70; TEMP 96.5–98; O2SAT 90–97
[2025-02-05] MEDS: PANTOPRAZOLE 40MG VIAL IV SCH (02:11)
[2025-02-05 02:28] LABS: BASO # 0.0 10^3/uL (0.0-0.2); BASO % 0.2 % (0.0-1.0); EOS # 0.0 10^3/uL (0.0-0.5); EOS % 0.0 % (0.0-3.0); LYMPH # 1.7 10^3/uL (1.5-5.0); LYMPH % 8.0 % (24.0-44.0); MONO # 0.8 10^3/uL (0.0-0.8); MONO % 3.9 % (2.0-8.0); NEUTROPHILS # 18.4 10^3/uL (1.5-8.5); NEUTROPHILS % 87.0 % (36.0-66.0); PLATELET COUNT, AUTOMATED 233 10^3/uL (150-450)
[2025-02-05] MEDS: HYDROMORPHONE HCL 0.5 MG/0.5 ML SYRINGE IV ONE (02:48)
[2025-02-05] MEDS: NS 500 ML IV ONE (03:49)
[2025-02-05] MEDS ORDERED: NOREPINEPHRINE 4MG IN D5 250ML 4 MG in IV 1 EA IV SCH (04:50)
[2025-02-05] MEDS ORDERED: FUROSEMIDE 40 MG/4 ML VIAL As Ordered ONE (06:20)
[2025-02-05] MEDS ORDERED: FLUMAZENIL 0.5 MG/5 ML VIAL As Ordered ONE (06:24)
[2025-02-05] MEDS ORDERED: VASOPRESSIN IN 0.9 % NACL 20UNIT/100ML INFUS.BTL As Ordered ONE (06:43)
[2025-02-05] MEDS ORDERED: EPINEPHrine INJ 1 MG/ML 1ML AMP As Ordered ONE (06:51)
[2025-02-05] MEDS ORDERED: TENECTEPLASE 50 MG/10 ML VIAL IV STA (06:52)
[2025-02-05] MEDS ORDERED: DOBUTamine 500 MG/250 ML BAG IN D5W (2,000 MCG/ML) As Ordered ONE (06:58)
[2025-02-05] MEDS ORDERED: CALCIUM CHLORIDE 10% 1 GM/10 ML SYR As Ordered ONE (07:07)
[2025-02-05] MEDS ORDERED: SODIUM BICARBONATE 8.4% INJ 50ML SYRINGE As Ordered ONE (07:09)
[2025-02-05] MEDS: FUROSEMIDE 40 MG/4 ML VIAL IV ONE (07:25)
[2025-02-05 07:27] LABS: PLATELET COUNT, AUTOMATED 141 10^3/uL (150-450)
[2025-02-05 07:36] LABS: ALT/SGPT 17.0 U/L (7.0-40); AST/SGOT 46.0 U/L (<34); CALCIUM LEVEL 6.9 MG/DL (8.3-10.6); CARBON DIOXIDE LEVEL 32.0 MMOL/L (20-31); CHLORIDE LEVEL 111.0 MMOL/L (98-107); CREATININE FOR GFR 0.96 MG/DL (0.55-1.30); GLOMERULAR FILTRATION RATE 67.7 (>45); POTASSIUM SERUM 4.7 MMOL/L (3.5-5.1); SODIUM LEVEL 161.0 MMOL/L (136-145)
[2025-02-05 07:53] LABS: LYMPHOCYTES 29 % (16-44); METAMYELOCYTES 2 % (0-0); MONOCYTES 1 % (0-5); MYELOCYTES 2 % (0-0); NEUTROPHILS 65 % (28-66)
[2025-02-05 07:55] LABS: PLATELET ESTIMATE DECREASED (NORMAL)
== END 2025-02-05 07:30 | disposition expired | DRG 720 ==
LOC: M ED 05:28 → M ED INP 11:42 → M ICU 13:08
PROVIDERS: ADMIT Internal Medicine Pulmonary Disease; ATTEND Internal Medicine Pulmonary Disease
PROC: 06H03DZ Insertion of Intraluminal Device into Inferior Vena Cava, Percutaneous Approach (ICD-10-PCS; 2025-02-03)
PROC: B246ZZZ Ultrasonography of Right and Left Heart (ICD-10-PCS; principal; 2025-02-03 12:00)
PROC: B31SYZZ Fluoroscopy of Right Pulmonary Artery using Other Contrast (ICD-10-PCS; 2025-02-04)
PROC: 0BH17EZ Insertion of Endotracheal Airway into Trachea, Via Natural or Artificial Opening (ICD-10-PCS; 2025-02-05)
DX: A41.9 Sepsis, unspecified organism (principal); J96.01 Acute respiratory failure with hypoxia; I26.09 Other pulmonary embolism with acute cor pulmonale; I47.20 Ventricular tachycardia, unspecified; E87.20 Acidosis, unspecified; D68.59 Other primary thrombophilia; I11.0 Hypertensive heart disease with heart failure; I50.811 Acute right heart failure; I82.402 Acute embolism and thrombosis of unspecified deep veins of left lower extremity; I24.89 Other forms of acute ischemic heart disease; I27.82 Chronic pulmonary embolism; I27.20 Pulmonary hypertension, unspecified; I47.10 Supraventricular tachycardia, unspecified; E03.9 Hypothyroidism, unspecified; G89.4 Chronic pain syndrome; G43.909 Migraine, unspecified, not intractable, without status migrainosus; F17.210 Nicotine dependence, cigarettes, uncomplicated; E87.6 Hypokalemia; J98.11 Atelectasis; M79.81 Nontraumatic hematoma of soft tissue; Z53.09 Procedure and treatment not carried out because of other contraindication; Z79.01 Long term (current) use of anticoagulants; Z79.899 Other long term (current) drug therapy; Z90.49 Acquired absence of other specified parts of digestive tract; R65.20 Severe sepsis without septic shock